=== PATIENT | female | born 2000 | race Caucasian/White ===

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

== ENCOUNTER → 2020-01-12 | Outpatient (CLI) | payer OTHER | LOC: M LABSMTC 11:27 | PROVIDERS: ATTEND Pediatrics | DX: Z03.818 Encounter for observation for suspected exposure to other biological agents ruled out (principal); Z11.59 Encounter for screening for other viral diseases ==

== ENCOUNTER → 2020-03-21 | Outpatient (CLI) | payer OTHER ==
--- NOTE | 2020-05-19 10:14 | REP ---
RIGHT FOOT: 4-VIEWS HISTORY: Fall 2 weeks ago, swelling FINDINGS: There is no evidence of acute fracture, dislocation or intrinsic bone disease. IMPRESSION: No fracture or dislocation. MTDD
--- NOTE | 2020-05-19 10:15 | REP ---
RIGHT ANKLE SERIES: 4-VIEWS HISTORY: Fall 2 weeks ago. FINDINGS: 4-views of the right ankle are performed. There is no acute fracture, dislocation or intrinsic bone disease. The ankle mortise is anatomic. IMPRESSION: No acute fracture or dislocation. MTDD
== END ==
LOC: M WUC 16:20
PROVIDERS: ATTEND Physician Assistant
DX: S93.401A Sprain of unspecified ligament of right ankle, initial encounter (principal); S93.601A Unspecified sprain of right foot, initial encounter; X58.XXXA Exposure to other specified factors, initial encounter; Y92.9 Unspecified place or not applicable

== ENCOUNTER → 2020-05-30 | Outpatient (CLI) | payer OTHER ==
--- NOTE | 2020-05-30 09:47 | REP ---
INDICATION: R00.2 PALPITATIONS, R07.9 CHEST PAIN COMPARISON: 01/27/2012 TECHNIQUE: PA and lateral. FINDINGS: The mediastinum and cardiac silhouette are normal. The lung otoole are clear and without acute consolidation, effusion, or pneumothorax. The skeletal structures are intact and normal. IMPRESSION: No acute cardiopulmonary process. <Electronically signed by Misael Salazar > 05/30/20 [id number]
== END ==
LOC: M CLY 08:45
PROVIDERS: ATTEND Nurse Practitioner Family
DX: R00.2 Palpitations (principal); R07.9 Chest pain, unspecified

== ENCOUNTER → 2020-07-20 | Outpatient (CLI) | payer OTHER ==
--- NOTE | 2020-07-20 16:44 | REP ---
INDICATION: N92.1 EXCESSIVE AND FREQUENT MENSTRUATION. COMPARISON: Bladder ultrasound dated 04/27/2007. TECHNIQUE: Transabdominal, endovaginal Doppler ultrasound assessment: FINDINGS: The uterus is anteverted and normal size measuring 7.4 x 2.2 x 4.5 cm. The endometrium is not thickened measuring up to 3.2 mm. There is an IUD within the endometrial canal in satisfactory location. Right ovary: The right ovary is normal size measuring 2.3 x 2.0 by 2.3 cm. There is no dominant right ovarian mass or cyst. There is right ovarian vascular flow with the Doppler resistive index in the parenchymal arteries measuring 0.51. Left ovary: Left ovary is normal size measuring 2.3 x 1.2 x 2.4 cm. There is no dominant left ovarian mass or cyst. There is vascular flow in the left lower with Doppler resistive index in the parenchymal arteries measuring 0.36. There is no free fluid in the pelvis. IMPRESSION: There is an IUD within the endometrial canal. Otherwise, essentially negative pelvic ultrasound. <Electronically signed by Chencho Salazar > 07/20/20 [id number]
== END ==
LOC: M WHC 13:38
PROVIDERS: ATTEND Obstetrics & Gynecology
DX: N92.1 Excessive and frequent menstruation with irregular cycle (principal); Z97.5 Presence of (intrauterine) contraceptive device

== ENCOUNTER → 2020-08-07 | Outpatient (REF) | payer OTHER ==
[~2020-08-07] MED LIST changes: +CEFD1CAP8
[2020-08-07 16:16] LABS: BASO % 0.5 % (0.0-1.0); EOS % 0.6 % (0.0-3.0); HEMATOCRIT 43.7 % (36.0-47.0); HEMOGLOBIN 14.3 g/dl (12.0-15.5); LYMPH # 1.3 10^3/uL (1.5-5.0); LYMPH % 20.4 % (24.0-44.0); MEAN CORPUSCULAR HEMOGLOBIN 28.5 pg (27.0-33.0); MEAN CORPUSCULAR HGB CONC 32.7 g/dl (32.0-36.5); MEAN CORPUSCULAR VOLUME 87.1 fl (80.0-96.0); MONO # 0.5 10^3/uL (0.0-0.8); MONO % 8.2 % (0.0-5.0); NEUTROPHILS # 4.3 10^3/uL (1.5-8.5); PLATELET COUNT, AUTOMATED 260 10^3/uL (150-450); RED BLOOD COUNT 5.02 10^6/uL (4.00-5.40); WHITE BLOOD COUNT 6.2 10^3/uL (4.0-10.0)
[2020-08-07 16:49] LABS: ALBUMIN 3.7 GM/DL (3.2-5.2); ALT/SGPT 27 U/L (12-78); BILIRUBIN,TOTAL 0.3 MG/DL (0.2-1.0); BLOOD UREA NITROGEN 10 MG/DL (7-18); CALCIUM LEVEL 8.8 MG/DL (8.5-10.1); CARBON DIOXIDE LEVEL 31 MEQ/L (21-32); CHLORIDE LEVEL 103 MEQ/L (98-107); CREATININE FOR GFR 0.63 MG/DL (0.55-1.30); GLUCOSE, FASTING 91 MG/DL (70-100); POTASSIUM SERUM 4.5 MEQ/L (3.5-5.1); SODIUM LEVEL 140 MEQ/L (136-145); TOTAL PROTEIN 6.9 GM/DL (6.4-8.2)
== END ==
LOC: M SFHCCLAY 13:33
PROVIDERS: ATTEND Nurse Practitioner Family
DX: R10.2 Pelvic and perineal pain (principal)

== ENCOUNTER → 2020-08-15 | Outpatient (CLI) | payer OTHER | LOC: M LABSMTC 12:07 | PROVIDERS: ATTEND Anesthesiology | DX: Z01.812 Encounter for preprocedural laboratory examination (principal); Z20.822 Contact with and (suspected) exposure to COVID-19 ==

== ENCOUNTER 2020-08-20 09:51 | Day surgery (SDC) | payer OTHER ==
[~2020-08-20] VITALS: Ht 172.7 cm; Wt 88.4 kg
[~2020-08-20 09:51] MED LIST changes: +HYDR1SOL PO; +IBUP1TAB7 PO; +KEFL500C17 PO
[2020-08-20] MEDS ORDERED: ROCURONIUM BROMIDE 50 MG/5 ML VIAL As Ordered ONE (10:17)
[2020-08-20] MEDS ORDERED: propofoL 200 MG/20 ML VIAL As Ordered ONE (10:17)
[2020-08-20] MEDS ORDERED: LIDOCAINE 2% 100MG/5ML SDV (FOR ANES.) As Ordered ONE (10:17)
[2020-08-20] MEDS ORDERED: MIDAZOLAM INJ 2MG/2ML VIAL (J2250 PER 1MG) As Ordered ONE (10:18)
[2020-08-20] MEDS ORDERED: fentaNYL 250 MCG/5 ML INJECTION (J3010) As Ordered ONE (10:18)
[2020-08-20] MEDS ORDERED: LR 1,000 ML IV ONE (11:00)
[2020-08-20] MEDS ORDERED: BUPIVACAINE HCL 0.5% 30 ML VIAL As Ordered ONE (12:09)
[2020-08-20] MEDS ORDERED: KETOROLAC 60MG 2ML VIAL As Ordered ONE (12:32)
[2020-08-20] MEDS ORDERED: dexameTHASONE 4 MG/ML 1ML VIAL (J1100 PER 1MG) As Ordered ONE (12:32)
[2020-08-20] MEDS ORDERED: ONDANSETRON 4MG/2ML VIAL As Ordered ONE (12:32)
[2020-08-20] MEDS ORDERED: METOCLOPRAMIDE INJ 10MG/2ML VIAL (J2765 PER 1) As Ordered ONE (12:41)
[2020-08-20] MEDS ORDERED: SUGAMMADEX SODIUM 500 MG/5 ML VIAL (BRIDION) As Ordered ONE (12:41)
[2020-08-20] MEDS ORDERED: ONDANSETRON 4MG/2ML VIAL IV PRN (13:30)
[2020-08-20] MEDS ORDERED: PERCOCET 5MG/325MG TAB PO PRN (13:30)
[2020-08-20] MEDS ORDERED: IBUPROFEN 800 MG TAB PO PRN (13:30)
[2020-08-20] MEDS ORDERED: fentaNYL 100 MCG/2 ML INJECTION (J3010) IV PRN (13:30)
[2020-08-20] MEDS ORDERED: LR 1,000 ML IV SCH (13:30)
[2020-08-20] MEDS: PERCOCET 5MG/325MG TAB PO PRN ×2 (13:36→14:10)
[2020-08-20 13:55] VITALS: BP 127/83
--- NOTE | 2020-08-21 12:55 | RO ---
OPERATIVE NOTE DATE OF OPERATION: 08/20/2020 PREOPERATIVE DIAGNOSIS: Tonsillitis. POSTOPERATIVE DIAGNOSIS: Tonsillitis. PROCEDURE: Tonsillectomy. 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 DESCRIPTION OF PROCEDURE: After satisfactory general endotracheal anesthesia was administered, the patient was placed in Trendelenburg position, and Dara-Ac gag was inserted. The right tonsil was grasped with an Allis clamp and retracted out of its muscular fossa. Using a cutting cautery, an incision was made on the anterior pillar on the tonsil 3 mm from its edge. The capsule of the tonsil was identified. Then using a combination of cautery and blunt dissection with the cautery tip, the tonsil was rolled medially out of its muscular fossa preserving the posterior pillar and dissecting in the plane between the constricted muscle and the tonsil capsule. Small vessels encountered along dissection were cauterized easily with suction cautery. Once the tonsil was suspended only by the inferior pole, coagulation current was used to amputate the tissue. No significant bleeding was encountered during this dissection, then the left tonsil was removed in a similar fashion. After tonsils were removed, there were small vessels that were noted to be at risk with some mild bleeding. They were oversewn using a [id number] 4-0 chromic suture in both tonsillar fossa. After this, the gag was released at three minutes, and the area was reinspected with no active bleeding. Marcaine 0.5% was injected into the surgical site. The patient was then awakened, extubated, and sent to recovery in satisfactory condition. She will be discharged home on Hycet Elixir, Motrin 800 mg three times a day and Extra Strength Advil or Tylenol. She will be seen in the office in one week.
== END 2020-08-20 14:48 | disposition home or self-care (01) ==
LOC: M SDC 09:51
PROVIDERS: ATTEND Specialist
DX: J35.01 Chronic tonsillitis (principal)
CPT/HCPCS: 42826; 81025; 88300; J1100; J1885; J2250; J2405; J2765; J3010

== ENCOUNTER → 2020-09-04 | Outpatient (REF) | payer OTHER | LOC: M SFHCCLAY 11:10 | PROVIDERS: ATTEND Nurse Practitioner Family | DX: R30.0 Dysuria (principal) ==

== ENCOUNTER 2021-01-25 16:47 | Emergency (ER) | payer OTHER ==
[~2021-01-25] VITALS: Ht 172.7 cm; Wt 86.2 kg
[2021-01-25] MEDS ORDERED: NS 1,000 ML IV ONE (20:05)
[2021-01-25] MEDS ORDERED: KETOROLAC 30 MG/ML 1ML VIAL IV ONE (21:00)
[2021-01-25 21:07] LABS: BASO # 0.1 10^3/uL (0.0-0.2); BASO % 0.7 % (0.0-1.0); EOS # 0.1 10^3/uL (0.0-0.5); EOS % 0.8 % (0.0-3.0); HEMATOCRIT 43.7 % (36.0-47.0); HEMOGLOBIN 15.2 g/dl (12.0-15.5); LYMPH # 2.1 10^3/uL (1.5-5.0); MEAN CORPUSCULAR HEMOGLOBIN 29.7 pg (27.0-33.0); MEAN CORPUSCULAR HGB CONC 34.8 g/dl (32.0-36.5); MEAN CORPUSCULAR VOLUME 85.4 fl (80.0-96.0); MONO # 0.6 10^3/uL (0.0-0.8); MONO % 8.6 % (2.0-8.0); NEUTROPHILS # 4.6 10^3/uL (1.5-8.5); NEUTROPHILS % 61.8 % (36.0-66.0); PLATELET COUNT, AUTOMATED 265 10^3/uL (150-450); RED BLOOD COUNT 5.12 10^6/uL (4.00-5.40); WHITE BLOOD COUNT 7.4 10^3/uL (4.0-10.0)
[2021-01-25] MEDS ORDERED: ISOVUE-370 76% 100ML VIAL As Ordered ONE (21:08)
[2021-01-25 21:17] LABS: ALBUMIN 4.1 GM/DL (3.2-5.2); BILIRUBIN,DIRECT 0.3 MG/DL (0.0-0.2); BILIRUBIN,TOTAL 0.9 MG/DL (0.2-1.0); TOTAL PROTEIN 7.4 GM/DL (6.4-8.2)
--- NOTE | 2021-01-25 22:11 | REPVR ---
PROCEDURE INFORMATION: Exam: CT Abdomen And Pelvis With Contrast Exam date and time: 01/25/2021 9:17 PM Age: 20 years old Clinical indication: Abdominal pain; Localized; Lower; Additional info: Lower abd pain TECHNIQUE: Imaging protocol: Computed tomography of the abdomen and pelvis with contrast. Radiation optimization: All CT scans at this facility use at least one of these dose optimization techniques: automated exposure control; mA and/or kV adjustment per patient size (includes targeted exams where dose is matched to clinical indication); or iterative reconstruction. Contrast material: ISOVUE 370; Contrast volume: 100 ml; Contrast route: INTRAVENOUS (IV); COMPARISON: PELVIS NON-OB COMPLETE US 07/20/2020 1:44 PM FINDINGS: Lungs: The imaged portions of the lung bases are clear. The lungs were not fully imaged. Heart: No cardiomegaly or pericardial effusion. Liver: The attenuation of the liver is more than 40 Hounsfield units lower in attenuation compared to the spleen, which is compatible with fatty liver infiltration. The contour of the liver is smooth. No liver lesion. No hepatomegaly. Gallbladder and bile ducts: No calcified gallstones are noted. No gallbladder wall thickening, pericholecystic fluid, or pericholecystic inflammatory changes are identified. No dilation of the bile ducts is noted. No calcified stones are seen in the common bile duct. Pancreas: Normal. No dilation of the main pancreatic duct is noted. Spleen: Normal. No splenomegaly is noted. Adrenal glands: Normal. No adrenal mass is noted. Kidneys and ureters: The kidneys are normal in appearance. No renal lesion is noted. No stones are noted in the kidneys or ureters. There is no hydronephrosis or hydroureter. There are no wedge-shaped areas of low attenuation in the kidneys to suggest pyelonephritis. There is no renal abscess or perinephric fluid collection. Stomach and bowel: The stomach and small bowel are unremarkable. There is no evidence for a bowel obstruction, diverticulitis, perforated viscus, pneumatosis intestinalis, intussusception, or volvulus. The descending colon and sigmoid colon are decompressed, limiting their optimal evaluation. There is no pericolonic inflammatory fat stranding. Appendix: There is intraluminal high density within the appendix, which may represent high density ingested material or appendicoliths. The appendix is not dilated and there is no inflammatory fat stranding or fluid around the appendix to indicate appendicitis. Intraperitoneal space: No free air. No ascites. No abscess. Retroperitoneal space: No fluid collection. No mass. Vasculature: The abdominal aorta is patent, normal in caliber, and there is no dissection. The iliac arteries, common femoral arteries, renal arteries, celiac artery, superior mesenteric artery, and inferior mesenteric artery are patent. Lymph nodes: No enlarged lymph nodes. Urinary bladder: The distended urinary bladder is normal in appearance. No stones or masses are seen in the bladder. Reproductive: There is an intrauterine device in satisfactory position in the endometrial canal. The anteverted uterus is unremarkable. There is a 3.2 cm dominant follicular cyst in the left ovary, for which follow-up imaging is not necessary. Right ovary is normal appearance. No tubo-ovarian abscess noted. Bones/joints: There is no fracture or dislocation. No suspicious osteolytic or osteoblastic lesion. There are posterior protrusions at L2-L3, L3-L4, and L4-L5 levels. However, no significant spinal canal stenosis or neural foraminal stenosis is identified lumbar spine. Soft tissues: Unremarkable. No hernia. IMPRESSION: 1. 3.2 cm dominant follicular cyst in the left ovary, for which follow-up imaging is not necessary. 2. Fatty liver. Electronically signed by: Byron Rabago On 01/25/2021 22:11:16 PM
[2021-01-25] MEDS ORDERED: KETO10TAB PO (22:44)
[2021-01-25] MEDS ORDERED: traMADol 50 MG TAB PO ONE (22:50)
[2021-01-25 22:52] VITALS: BP 121/56
== END 2021-01-25 23:05 | disposition home or self-care (01) ==
LOC: M ED 16:47
DX: N83.202 Unspecified ovarian cyst, left side (principal); K76.0 Fatty (change of) liver, not elsewhere classified; K58.8 Other irritable bowel syndrome; R19.7 Diarrhea, unspecified
CPT/HCPCS: 74177; 80047; 80076; 81001; 83605; 83690; 84702; 85025; 87040; 96374; 99284; J1885; Q9967

== ENCOUNTER → 2024-03-23 | Outpatient (REF) | payer OTHER ==
[~2024-03-23] MED LIST changes: -CEFD1CAP8; +CEFD1CAP9; +KETO10TAB PO
[2024-03-23 12:10] LABS: BASO % 0.6 % (0.0-1.0); EOS # 0.1 10^3/uL (0.0-0.5); EOS % 1.7 % (0.0-3.0); HEMATOCRIT 42.4 % (36.0-47.0); HEMOGLOBIN 14.4 g/dl (12.0-15.5); LYMPH # 2.2 10^3/uL (1.5-5.0); LYMPH % 33.7 % (24.0-44.0); MEAN CORPUSCULAR HEMOGLOBIN 29.3 pg (27.0-33.0); MEAN CORPUSCULAR VOLUME 86.4 fl (80.0-96.0); MONO # 0.6 10^3/uL (0.0-0.8); MONO % 8.5 % (2.0-8.0); NEUTROPHILS # 3.6 10^3/uL (1.5-8.5); NEUTROPHILS % 55.3 % (36.0-66.0); PLATELET COUNT, AUTOMATED 239 10^3/uL (150-450); RED BLOOD COUNT 4.91 10^6/uL (4.00-5.40); WHITE BLOOD COUNT 6.6 10^3/uL (4.0-10.0)
[2024-03-23 12:23] LABS: APPEARANCE, URINE HAZY (CLEAR); BACTERIA, URINE AUTO 1+ (NEGATIVE); BILIRUBIN, URINE AUTO NEGATIVE (NEGATIVE); BLOOD, URINE BLOOD NEGATIVE (NEGATIVE); COLOR, URINE YELLOW (YELLOW); GLUCOSE, URINE (UA) AUTO NEGATIVE (NEGATIVE); KETONE, URINE AUTO NEGATIVE (NEGATIVE); LEUKOCYTE ESTERASE, URINE AUTO NEGATIVE (NEGATIVE); MUCUS, URINE SMALL (NEGATIVE); NITRITE, URINE AUTO NEGATIVE (NEGATIVE); PROTEIN, URINE AUTO NEGATIVE (NEGATIVE); RBC, URINE AUTO 0 /HPF (0-3); SQUAMOUS EPITHELIAL CELL UR AU 6 /HPF (0-6); UROBILINOGEN, URINE AUTO 0.2 mg/dL (0.0-2.0); WBC, URINE AUTO 1 /HPF (0-3)
[2024-03-23 12:36] LABS: ALBUMIN 3.7 G/DL (3.2-5.2); ALKALINE PHOSPHATASE 38 U/L (46-116); ALT/SGPT 22 U/L (7.0-40); AST/SGOT 17 U/L (<34); BILIRUBIN,TOTAL 0.7 MG/DL (0.3-1.2); BLOOD UREA NITROGEN 13 MG/DL (9-23); CALCIUM LEVEL 8.8 MG/DL (8.5-10.1); CARBON DIOXIDE LEVEL 28 MMOL/L (20-31); CHLORIDE LEVEL 107 MMOL/L (98-107); CHOLESTEROL LEVEL 137 MG/DL (<200); CHOLESTEROL RISK RATIO 2.26 (<5); CREATININE FOR GFR 0.77 MG/DL (0.55-1.30); GLOMERULAR FILTRATION RATE > 60.0 (>60); GLUCOSE, FASTING 90 MG/DL (60-100); HDL CHOLESTEROL 60.4 MG/DL (>40); LDL CHOLESTEROL 66.2 MG/DL (<100); NON-HDL-C 76.6 MG/DL; SODIUM LEVEL 139 MMOL/L (136-145); TOTAL PROTEIN 6.6 G/DL (5.7-8.2); TRIGLYCERIDES LEVEL 52 MG/DL (<150)
[2024-03-23 12:37] LABS: FREE T4 1.06 NG/DL (0.89-1.76); THYROID STIMULATING HORMONE 3.647 uIU/ML (0.55-4.78)
== END ==
LOC: M SFHCCLAY 07:18
PROVIDERS: ATTEND Nurse Practitioner Family
DX: K58.9 Irritable bowel syndrome, unspecified (principal); K76.0 Fatty (change of) liver, not elsewhere classified; R00.2 Palpitations; R39.89 Other symptoms and signs involving the genitourinary system

== ENCOUNTER → 2024-05-03 | Outpatient (CLI) | payer OTHER | LOC: M RAD 09:13 | PROVIDERS: ATTEND Nurse Practitioner Family | DX: K76.0 Fatty (change of) liver, not elsewhere classified (principal) ==